=== PATIENT | female | born 1980 | race Caucasian/White ===

== ENCOUNTER → 2019-09-26 18:22 | Outpatient (CLI) | payer OTHER, SELFPAY ==
--- NOTE | 2019-09-26 18:23 | DI.RAD.S_ITS ---
PROCEDURE: XR CHEST 2V INDICATIONS: cough TECHNIQUE: 2 views of the chest were acquired. COMPARISON: None. FINDINGS: Surgical changes and devices: Vertical Mclaughlin rods cross much of the thoracic spine there is middle and lower thirds, and there is no evidence of device loosening or disruption. Lungs and pleura: Lungs are clear. No pleural effusions or pneumothorax. Mediastinum: Mediastinal contours are normal. Heart size is normal. Bones and chest wall: No suspicious bony abnormalities. Soft tissues appear unremarkable. IMPRESSION: No pneumonia found. Bilateral Mclaughlin rods as discussed, establishing near-anatomic alignment along the thoracic spine. Dictated by: Christopher Cruz M.D. on 09/26/2019 at 18:35 Approved by: Christopher Cruz M.D. on 09/26/2019 at 18:36
== END ==
PROVIDERS: Visit Provider Physician Assistant
DX: R05 Cough (principal)
CPT/HCPCS: 71046